=== PATIENT | male | born 1995 ===

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

== ENCOUNTER 2017-04-10 09:43 | Emergency (ER) | payer MEDICAID ==
[2017-04-10 09:45] VITALS: BMI 17.7
[2017-04-10 09:47] VITALS: BP 122/80
[2017-04-10 11:03] LABS: BASO % 0.3 % (0.0-2.0); EOS % 0.1 % (0.0-4.0); HEMOGLOBIN 15.3 g/dL (12.0-18.0); LYMPH # 0.2 K/uL (1.0-4.3); LYMPH % 3.9 % (20.0-40.0); MEAN CELL VOLUME 88.8 fl (80.0-94.0); MEAN CORPUSCULAR HEMOGLOBIN 30.9 pg (27.0-31.0); MEAN CORPUSCULAR HGB CONC 34.8 g/dL (33.0-37.0); MEAN PLATELET VOLUME 8.1 fl (7.2-11.7); MONO # 0.5 K/uL (0.0-0.8); MONO % 8.5 % (0.0-10.0); NEUT # 4.7 K/uL (1.8-7.0); NEUT % 87.2 % (50.0-75.0); NRBC % 0.1 % (0.0-0.0); PLATELET COUNT 178 K/uL (130-400); RBC 4.97 Mil/uL (4.40-5.90); RED CELL DISTRIBUTION WIDTH 12.2 % (11.5-14.5); WHITE BLOOD COUNT 5.4 K/uL (4.8-10.8)
[2017-04-10 11:03] LABS: VENOUS BLOOD GAS BASE EXCESS -0.5 mmol/L (0.0-2.0); VENOUS BLOOD GAS PCO2 39 mmHg (40-60); VENOUS BLOOD GAS PO2 37 mm/Hg (30-55)
--- NOTE | 2017-04-10 11:10 | ED PDOC ---
HPI: General Adult Time Seen by Provider: 04/10/17 09:59 Chief Complaint (Nursing): Cough, Cold, Congestion Chief Complaint (Provider): Cough, Cold, Congestion History Per: Patient History/Exam Limitations: no limitations Onset/Duration Of Symptoms: Days (x 2) Additional Complaint(s): Polo is a 21 year old male who presents to the emergency department complaining of acute onset of lower back pain associated with cough, fever and chills since yesterday. Patient reports generalized weakness on legs and has diffculity walking because of it. Denies taking medications for pain. PMD: Federico Gilmore Past Medical History Reviewed: Historical Data, Nursing Documentation, Vital Signs Vital Signs: Last Vital Signs Temp 98.5 F 04/10/17 13:16 Pulse 92 H 04/10/17 13:16 Resp 16 04/10/17 13:16 BP 122/80 04/10/17 09:45 Pulse Ox 98 04/10/17 13:16 - Medical History PMH: Anxiety, Pneumothorax (at ) - Surgical History Surgical History: No Surg Hx - Family History Family History: States: Unknown Family Hx - Social History Current smoker - smoking cessation education provided: No (History of marijuana , currently not active) Alcohol: None Drugs: Denies - Immunization History Hx Tetanus Toxoid Vaccination: No Hx Influenza Vaccination: No Hx Pneumococcal Vaccination: No - Home Medications Home Medications: Ambulatory Orders Medication Instructions Recorded Acetaminophen [Tylenol 325mg tab] 650 mg PO Q6H PRN #50 tab 04/10/17 Naproxen [Naprosyn] 500 mg PO BID PRN #20 tablet 04/10/17 Oseltamivir Phosphate [Tamiflu] 75 mg PO BID #9 capsule 04/10/17 - Allergies Allergies/Adverse Reactions: Allergies Allergy/AdvReac Type Severity Reaction Status Date / Time No Known Allergies Allergy Verified 07/04/16 07:24 Review of Systems ROS Statement: Except As Marked, All Systems Reviewed And Found Negative Constitutional: Positive for: Fever, Weakness (Generalized) ENT: Positive for: Throat Pain Respiratory: Positive for: Cough Gastrointestinal: Negative for: Nausea, Vomiting, Diarrhea Musculoskeletal: Positive for: Back Pain (Lower) Physical Exam - Reviewed Nursing Documentation Reviewed: Yes Vital Signs Reviewed: Yes - Physical Exam Appears: Positive for: Well (Appears well-nourished, tired-looking), Uncomfortable (Moderate discomfort) Skin: Positive for: Warm Neck: Positive for: Supple Respiratory: Positive for: Normal Breath Sounds (Clear) Back: Positive for: Other (Paraspinal tenderness noted) Extremity: Positive for: Normal ROM (Full) Neurologic/Psych: Positive for: Alert, Oriented, Other (Motor strength 5/5) - Laboratory Results Result Diagrams: 04/10/17 10:58 04/10/17 10:58 - ECG O2 Sat by Pulse Oximetry: 97 (RA) Pulse Ox Interpretation: Normal Medical Decision Making Medical Decision Making: Time: 10:36 Impression(s): Fever, cough Plan r/o pneumonia and flu - Venous Blood Gas Shock Panel - CMP - CBC - Chest X-Ray - Rocephin 1,000 mg Sodium Chloride 0.9% 100 ml IV - Tylenol 325 mg Tab - Zithromax 500 mg Sodium Chloride 0.9% ADVANTAGE 250 ml Scribe Attestation: Documented by Ulisses Aguilar, acting as a scribe for Luba Lopez MD Provider Scribe Attestation: All medical record entries made by the Scribe were at my direction and personally dictated by me. I have reviewed the chart and agree that the record accurately reflects my personal performance of the history, physical exam, medical decision making, and the department course for this patient. I have also personally directed, reviewed, and agree with the discharge instructions and disposition. 1.15p - patient is feeling better. Labs normal. Will discharge. Disposition - Clinical Impression Clinical Impression: Influenza A - Patient ED Disposition Is Patient to be Admitted: No Doctor Will See Patient In The: Office Counseled Patient/Family Regarding: Diagnosis, Need For Followup, Rx Given - Disposition Referrals: [facility] [Outside] [facility] [Outside] Disposition: Routine/Home Disposition Time: 13:40 Condition: IMPROVED Prescriptions: Acetaminophen [Tylenol 325mg tab] 650 mg PO Q6H PRN #50 tab PRN Reason: Pain, Mild (1-3) Naproxen [Naprosyn] 500 mg PO BID PRN #20 tablet PRN Reason: Pain, Moderate (4-7) Oseltamivir Phosphate [Tamiflu] 75 mg PO BID #9 capsule Instructions: Influenza (ED) Forms: [facility] ([employer]), [facility] ED School/Work Excuse - POA Present On Arrival: None
[2017-04-10] MEDS: Azithromycin 500 MG in Sodium Chloride 0.9% 250 ML IVPB STA (11:22)
[2017-04-10 11:58] LABS: ALB/GLOB RATIO 1.4 (1.0-2.1); ALBUMIN 4.6 g/dL (3.5-5.0); ALT/SGPT 24 U/L (21-72); AST/SGOT 30 U/L (17-59); BLOOD UREA NITROGEN 12 mg/dl (9-20); CALCIUM 9.2 mg/dL (8.4-10.2); GFR AFRICAN-AMERICAN > 60; GFR NON-AFRICAN AMERICAN > 60
[2017-04-10] MEDS: Naproxen 500 MG TAB PO ONE (12:01)
[2017-04-10 12:02] VITALS: RESP 16
--- NOTE | 2017-04-10 12:48 | RAD ---
HISTORY: COMPARISON: 07/04/2016 TECHNIQUE: Chest PA and lateral FINDINGS: LINES AND TUBES: None. LUNG AND PLEURA: There is mild pulmonary hyperinflation and peribronchial cuffing with streaky opacities in the lungs. No lobar pneumonia. HEART AND MEDIASTINUM: The heart is not enlarged. The hilar and mediastinal contours are within normal limits. SKELETAL STRUCTURES: The bony structures are within normal limits for the patient's age. VISUALIZED UPPER ABDOMEN: Normal. OTHER FINDINGS: None. IMPRESSION: Findings are most compatible with reactive airway disease/viral/ atypical pneumonitis. No lobar pneumonia.
[2017-04-10 13:10] LABS: BANDS 1 % (0-2); LYMPHOCYTE 1 % (20-50); MONOCYTE 3 % (0-10); NEUTROPHIL 95 % (42-75); PLATELET ESTIMATE NORMAL (NORMAL); TOTAL CELLS COUNTED 100
[2017-04-10 13:17] VITALS: PULSE 92; TEMP 98.5
[2017-04-10 13:41] VITALS: O2SAT 97
== END 2017-04-10 13:54 | disposition home or self-care (01) ==
LOC: H.ER 09:43
DX: J11.1 Influenza due to unidentified influenza virus with other respiratory manifestations (principal); F41.9 Anxiety disorder, unspecified
CPT/HCPCS: 71046; 80053; 82803; 85025; 87040; 87804; 96365; 96367; 96375; 99284; J0456; J0696; J2405; J7050